=== PATIENT | male | born 1940 | race Caucasian/White ===

== ENCOUNTER 2019-01-17 09:38 | Emergency (ER) | payer OTHER ==
--- NOTE | 2019-01-17 10:34 | RAD REPORT ---
EXAM DESCRIPTION: CT - [id number] - 01/17/2019 10:12 am CLINICAL HISTORY: Fall, head and neck injury, headache, neck pain COMPARISON: None. TECHNIQUE: Axial 5 mm thick images of the head were obtained. Axial 2 mm thick images of the cervic al spine were obtained with sagittal and coronal reconstruction images generated and reviewed. All CT scans are performed using dose optimization technique as appropriate and may include automated exposure control or mA/KV adjustment according to patient size. FINDINGS: No intracranial hemorrhage, mass, edema or acute intracranial finding. No suspicion for acute infarct ion. No extra-axial fluid collections. No cortical edema or sulcal effacement. The patient has promin ent atrophy and chronic ischemic change. Ventricles are in proportion to the amount of volume loss. A rterial and physiologic calcifications are present. Mastoid air cells and paranasal sinuses are clear . No globe or orbit abnormality seen. Cervical bodies are normal in height. No acute fracture changes present. There is a left lateral tilt of the cervical spine as well as a mild left convex curvature in the upper cervical spine. Significa nt disc space narrowing present at C3-4 and C4-5. Advanced disc space narrowing at C5-6 and C6-7. End plate spurring changes at all of these levels. Lateral mass of C1 is normally positioned to the left- side body of C2. Body of C2 is anterior to the lateral mass C1 by approximately 3 mm. 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 Pivot point is probably the lateral mass of C1; however, dens remains closely approximated to the anterior arch of C2. Patient has extensive degenerative jermaine nge and this may be chronic. Central canal detail is inherently limited. No paraspinal mass or hematoma. IMPRESSION: Advanced atrophy and chronic ischemic change without hemorrhage or acute intracranial fi nding. Chronic ischemic change can mask nonhemorrhagic CVA if this is suspected as a cause for the patient's fall. Prominent cervical spine degenerative change with no fracture identifiable. Patient has atlantoaxial rotary displacement involving C1-C2. No remote imaging is available. This can be chronic given the se verity of underlying disease rather than an acute injury. Patient has a baseline of advanced degenerative change as detailed. Central canal detail is inherentl y limited. Negative CT cervical spine examination for acute or significant finding.
--- NOTE | 2019-01-17 10:47 | ER ---
Nurse's Notes [facility] Name: Jin Cosme Age: 78 yrs Sex: Male : 1940 Arrival Date: 01/17/2019 Time: 09:42 Bed 18 Private MD: Diagnosis: Fall on same level, unspecified;Superficial injury of head;Abrasion of right wrist-skin tear Presentation: 01/17 09:44 Presenting complaint: EMS states: I fell this morning, fell backwards and hit by bottom sg and my upper back, has skin tear to the right forearm and right hand, no blood thinners, reports having hit the back of his head as well, denies LOC. Transition of care: patient was not received from another setting of care. Onset of symptoms was January 17, 2019. Risk Assessment: Do you want to hurt yourself or someone else? Patient reports no desire to harm self or others. Initial Sepsis Screen: Does the patient meet any 2 criteria? No. Patient's initial sepsis screen is negative. Does the patient have a suspected source of infection? No. Patient's initial sepsis screen is negative. Care prior to arrival: None. 09:44 Method Of Arrival: EMS: [facility] 09:44 Acuity: SALMA 3 sg Historical: - Allergies: 09:48 No Known Allergies; sg - Home Meds: 09:48 Lisinopril Oral [Active]; Allopurinol Oral [Active]; Aspirin Oral [Active]; sg rosuvastatin oral oral [Active]; - PMHx: 09:48 Gout; Hypertension; sg - Immunization history:: Adult Immunizations not up to date, Last tetanus immunization: unknown. - Social history:: Smoking status: Patient uses tobacco products. - Ebola Screening: : Patient negative for fever greater than or equal to 101.5 degrees Fahrenheit, and additional compatible Ebola Virus Disease symptoms Patient denies exposure to infectious person Patient denies travel to an Ebola-affected area in the 21 days before illness onset No symptoms or risks identified at this time. Screenin:00 Abuse screen: Denies threats or abuse. Denies injuries from another. Nutritional sg screening: No deficits noted. Tuberculosis screening: No symptoms or risk factors identified. Never had TB. Fall Risk None identified. Assessment: 10:00 General: Appears in no apparent distress. well groomed, well developed, well nourished, sg Behavior is calm, cooperative, appropriate for age. Pain: Denies pain. Neuro: Level of Consciousness is awake, alert, obeys commands, Oriented to person, place, time, situation, Manager Analysis are equal bilaterally Moves all extremities. Full function Gait is steady, Speech is normal, Facial symmetry appears normal, Pupils are PERRLA, Reports weakness. Cardiovascular: Capillary refill is brisk in bilateral fingers Patient's skin is warm and dry. Chest pain is denied. Respiratory: Airway is patent Respiratory effort is even, unlabored, Respiratory pattern is regular, symmetrical. GI: Abdomen is flat, non-distended, Reports tolerance of fluids, tolerance of food. : No signs and/or symptoms were reported regarding the genitourinary system. EENT: No signs and/or symptoms were reported regarding the EENT system. Derm: Skin is pink, warm \\T\\ dry. Musculoskeletal: Circulation, motion, and sensation intact. Range of motion: intact in all extremities. 11:00 Reassessment: Patient appears in no apparent distress at this time. Patient and/or sg family updated on plan of care and expected duration. Pain level reassessed. Patient is alert, oriented x 3, equal unlabored respirations, skin warm/dry/pink. Patient denies pain at this time. Vital Signs: 09:48 BP 123 / 93; Pulse 92; Resp 18; Temp 97.6; Pulse Ox 100% on R/A; Weight 65.77 kg; sg Height 5 ft. 2 in. (157.48 cm); Pain 0/10; 11:12 BP 123 / 82; Pulse 77; Resp 18; Pulse Ox 100% on R/A; sg 09:48 Body Mass Index 26.52 (65.77 kg, 157.48 cm) ED Course: 09:41 Cari Thomas FNP-C is PHCP. snw 09:41 Jacob Brooke MD is Attending Physician. snw 09:42 Patient arrived in ED. sg 09:44 Colin Morrissey RN is Primary Nurse. sg 09:46 Triage completed. sg 09:46 Arm band placed on. sg 09:56 Cari Thomas FNP-C is PHCP. snw 10:00 Patient has correct armband on for positive identification. Bed in low position. Call sg light in reach. Side rails up X2. Pulse ox on. NIBP on. Warm blanket given. Head of bed elevated. 10:00 No provider procedures requiring assistance completed. Patient did not have IV access sg during this emergency room visit. 10:15 CT Head C Spine In Process Unspecified. EDMS 10:45 Cristo Burden MD is Referral Physician. snw 11:25 Dressings: Steri strips 1/4 " X 1;. Wound care: to skin tear located on right wrist was sg cleaned with Hibiclens, dressed with Neosporin, 4X4s, Patient tolerated well. Administered Medications: 11:13 Not Given (Patient Refused): fentaNYL (PF) 25 mcg IM once sg Outcome: 10:46 Discharge ordered by . snw 11:50 Discharged to home via wheelchair. sg 11:50 Condition: stable 11:50 Discharge instructions given to patient, Instructed on discharge instructions, follow up and referral plans. safety practices, wound care, Demonstrated understanding of instructions, follow-up care. 11:54 Patient left the ED. sg Signatures: Dispatcher [employer] Colin Shipman, RN RN sg Cari Thomas, [employer] SALES BEAUTY ADVISOR-C [employer] SALES BEAUTY ADVISOR-Csnw
--- NOTE | 2019-01-17 10:47 | EDPHYS ---
Physician Documentation [facility] Name: Jin Cosme Age: 78 yrs Sex: Male : 1940 Arrival Date: 01/17/2019 Time: 09:42 Bed 18 Private MD: ED Physician Jacob Brooke HPI: 01/17 10:43 This 78 yrs old Male presents to ER via EMS with complaints of General snw Weakness. 10:43 Details of fall: The patient fell from an upright position, while walking. Onset: The snw symptoms/episode began/occurred suddenly, just prior to arrival. Associated injuries: The patient sustained injury to the head, tenderness. Severity of symptoms: At their worst the symptoms were very mild. The patient has experienced similar episodes in the past. It is unknown whether or not the patient has recently seen a physician. denies LOC, no vomiting. Historical: - Allergies: 09:48 No Known Allergies; sg - Home Meds: 09:48 Lisinopril Oral [Active]; Allopurinol Oral [Active]; Aspirin Oral [Active]; sg rosuvastatin oral oral [Active]; - PMHx: 09:48 Gout; Hypertension; sg - Immunization history:: Adult Immunizations not up to date, Last tetanus immunization: unknown. - Social history:: Smoking status: Patient uses tobacco products. - Ebola Screening: : Patient negative for fever greater than or equal to 101.5 degrees Fahrenheit, and additional compatible Ebola Virus Disease symptoms Patient denies exposure to infectious person Patient denies travel to an Ebola-affected area in the 21 days before illness onset No symptoms or risks identified at this time. ROS: 10:41 Constitutional: Negative for fever, chills, and weight loss, Eyes: Negative for injury, snw pain, redness, and discharge, ENT: Negative for injury, pain, and discharge, Neck: Negative for injury, pain, and swelling, Cardiovascular: Negative for chest pain, palpitations, and edema, Respiratory: Negative for shortness of breath, cough, wheezing, and pleuritic chest pain, Abdomen/GI: Negative for abdominal pain, nausea, vomiting, diarrhea, and constipation, Back: Negative for injury and pain, : Negative for injury, bleeding, discharge, and swelling. 10:41 MS/extremity: Positive for falling 2nd to difficulty with gait/coordination of lower ext.. 10:41 Skin: Positive for skin tears. 10:41 Neuro: Positive for mild headache post striking occiput on floor, Negative for loss of consciousness. Exam: 10:38 Constitutional: This is a well developed, well nourished patient who is awake, alert, snw and in no acute distress. Head/Face: Normocephalic, atraumatic. 10:38 ENT: Nares patent. No nasal discharge, no septal abnormalities noted. Tympanic membranes are normal and external auditory canals are clear. Oropharynx with no redness, swelling, or masses, exudates, or evidence of obstruction, uvula midline. Mucous membranes moist. Neck: Trachea midline, no thyromegaly or masses palpated, and no cervical lymphadenopathy. Supple, full range of motion without nuchal rigidity, or vertebral point tenderness. No Meningismus. Chest/axilla: Normal chest wall appearance and motion. Nontender with no deformity. No lesions are appreciated. Cardiovascular: Regular rate and rhythm with a normal S1 and S2. No gallops, murmurs, or rubs. Normal PMI, no JVD. No pulse deficits. Respiratory: Lungs have equal breath sounds bilaterally, clear to auscultation and percussion. No rales, rhonchi or wheezes noted. No increased work of breathing, no retractions or nasal flaring. Abdomen/GI: Soft, non-tender, with normal bowel sounds. No distension or tympany. No guarding or rebound. No evidence of tenderness throughout. Back: No spinal tenderness. No costovertebral tenderness. Full range of motion. MS/ Extremity: Pulses equal, no cyanosis. Neurovascular intact. Full, normal range of motion. Neuro: Awake and alert, GCS 15, oriented to person, place, time, and situation. Cranial nerves II-XII grossly intact. Motor strength 4/5 in all extremities. Mild contractures to right upper ext. Sensory grossly intact. Cerebellar exam normal. 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 Behavior, mood, and affect are within normal limits. 10:38 Eyes: Sclera: icterus, is present. 10:38 Skin: Appearance: normal except for affected area, injury, skin tear to right dorsal wrist, bleeding controlled, left hand with healing skin tears. Vital Signs: 09:48 BP 123 / 93; Pulse 92; Resp 18; Temp 97.6; Pulse Ox 100% on R/A; Weight 65.77 kg; sg Height 5 ft. 2 in. (157.48 cm); Pain 0/10; 11:12 BP 123 / 82; Pulse 77; Resp 18; Pulse Ox 100% on R/A; sg 09:48 Body Mass Index 26.52 (65.77 kg, 157.48 cm) sg MDM: 09:41 Patient medically screened. snw 10:47 Data reviewed: vital signs, nurses notes. Data interpreted: Pulse oximetry: on room air snw is 100 %. Interpretation: normal. Counseling: I had a detailed discussion with the patient and/or guardian regarding: the historical points, exam findings, and any diagnostic results supporting the discharge/admit diagnosis, the presence of at least one elevated blood pressure reading (>120/80) during this emergency department visit, radiology results, the need for outpatient follow up, to return to the emergency department if symptoms worsen or persist or if there are any questions or concerns that arise at home. Special discussion: I have referred the patient to see his PCP for further evaluation of high blood pressure. Based on the patient's history, exam and DX evaluation, there is no indication for emergent intervention or inpatient TX. It is understood by the patient/guardian that if the SXs persist or worsen they need to return immediately for re-evaluation. Based on the history and exam findings, there is no indication for further emergent testing or inpatient evaluation. I discussed with the patient/guardian the need to see the neurologist for further evaluation of the symptoms. I discussed with the patient/guardian the need to see the primary care provider for further evaluation of the symptoms. 01/17 09:45 Order name: CT Head C Spine; Complete Time: 10:35 kdr 01/17 10:47 Order name: Wound Care; Complete Time: 10:56 snw 01/17 10:47 Order name: Wound dressing; Complete Time: 10:56 snw Administered Medications: 11:13 Not Given (Patient Refused): fentaNYL (PF) 25 mcg IM once sg Disposition: 01/18 07:39 Co-signature as Attending Physician, Jacob Brooke MD I agree with the assessment and kdr plan of care. Disposition: 01/17/19 10:46 Discharged to Home. Impression: Fall on same level, unspecified, Superficial injury of head, Abrasion of right wrist - skin tear. - Condition is Stable. - Discharge Instructions: Cervical Radiculopathy, Head Injury, Adult, Fall Prevention in the Home, RICE for Routine Care of Injuries, Skin Tear Care, Heat Therapy. - Medication Reconciliation Form, Thank You Letter, Antibiotic Education, Prescription Opioid Use form. - Follow up: Emergency Department; When: As needed; Reason: Worsening of condition. Follow up: Cristo Burden MD; When: 1 - 2 days; Reason: Recheck today's complaints, Continuance of care, Re-evaluation by your physician. - Problem is new. - Symptoms are unchanged. Signatures: Dispatcher [employer] EDColin Cazares RN RN sg Rittger, Kevin, MD MD [facility] Cari Thomas, QM CONSULTANT-C QM CONSULTANT-Csnw Corrections: (The following items were deleted from the chart) 01/17 11:54 10:46 01/17/2019 10:46 Discharged to Home. Impression: Fall on same level, unspecified; sg Superficial injury of head; Abrasion of right wrist - skin tear. Condition is Stable. Forms are Medication Reconciliation Form, Thank You Letter, Antibiotic Education, Prescription Opioid Use. Follow up: Emergency Department; When: As needed; Reason: Worsening of condition. Follow up: Cristo Burden; When: 1 - 2 days; Reason: Recheck today's complaints, Continuance of care, Re-evaluation by your physician. Problem is new. Symptoms are unchanged. snw
[2019-01-17] MEDS ORDERED: FENTANYL CITR 100 MCG/2 ML ONE (11:13)
[2019-01-17 11:58] VITALS: TEMP 97.6; O2SAT 100
[2019-01-17 11:59] VITALS: BP 123/82
== END 2019-01-17 11:54 | disposition home or self-care (01) ==
LOC: ER 09:38
DX: S00.90XA Unspecified superficial injury of unspecified part of head, initial encounter (principal); S60.811A Abrasion of right wrist, initial encounter; W18.30XA Fall on same level, unspecified, initial encounter; Y93.01 Activity, walking, marching and hiking; Y92.9 Unspecified place or not applicable; Z72.0 Tobacco use; Z79.82 Long term (current) use of aspirin; I10 Essential (primary) hypertension
CPT/HCPCS: 70450; 72125; 99284; J3010